=== PATIENT | female | born 1965 | race African-American/Black ===

== ENCOUNTER 2017-12-20 09:41 | Day surgery (SDC) | payer MEDICAID ==
[~2017-12-20] VITALS: Ht 152.4 cm; Wt 97.8 kg
[~2017-12-20 09:41] MED LIST: ACET500T63 PO; ACET500T71 PO; AMLO2.5T PO; ATOR40TA78 PO; DICL112S2 TP; FLUT16SP NAS; HYDR-3240 PO; LACT1CAP20 PO; LORA10TA3 PO; NAPR250T6 PO; OXYB5TAB7 PO; PANT20TA3 PO; PANT40TA3 PO; PROM25SU34 RC; PSEU60TA2 PO; RANI150T23 PO; SENN-31 PO; [UNRECOGNIZED DRUG - CODE] TP; bladder medication PO
[2017-12-20] MEDS ORDERED: LACTATED RINGERS 1,000 ML IV SCH (10:09)
[2017-12-20 10:10] VITALS: BP 122/85
[2017-12-20] MEDS ORDERED: ONDANSETRON 2MG/ML, 2ML IV PRN (11:30)
[2017-12-20] MEDS ORDERED: LABETALOL 5MG/ML, 20ML IV PRN (11:30)
[2017-12-20] MEDS ORDERED: FENTANYL PF 100 MCG/2ML IV PRN (11:30)
[2017-12-20] MEDS ORDERED: ACETAMINOPHEN 325 MG TABLET PO PRN (11:30)
[2017-12-20] MEDS ORDERED: EPHEDRINE 50 MG/ML, 1ML IVPush PRN (11:30)
[2017-12-20] MEDS ORDERED: hydrALAzine 20 MG/ML, 1ML IV PRN (11:30)
== END 2017-12-20 14:30 | disposition home or self-care (01) ==
LOC: OUT 09:41
PROVIDERS: ATTEND Internal Medicine Gastroenterology
DX: K63.5 Polyp of colon (principal); K29.70 Gastritis, unspecified, without bleeding; K29.80 Duodenitis without bleeding; E78.5 Hyperlipidemia, unspecified; I10 Essential (primary) hypertension; K21.9 Gastro-esophageal reflux disease without esophagitis; E78.00 Pure hypercholesterolemia, unspecified; Z79.899 Other long term (current) drug therapy
CPT/HCPCS: 43239; 45380; 88305; J7120